=== PATIENT | female | born 1970 | race Caucasian/White ===

== ENCOUNTER 2022-03-15 14:20 | Inpatient (IN) ==
[2022-03-15] MEDS ORDERED: Naloxone 0.4 MG/ML INJ IVP PRN (17:46)
[2022-03-15] MEDS: 0.9 % Sodium Chloride 1,000 ML IVC SCH (18:41)
[2022-03-15] MEDS ORDERED: Ondansetron ODT 4 MG TAB.RAPDIS SL PRN (19:25)
[2022-03-15] MEDS: Azithromycin 500 MG in 0.9 % Sodium Chloride 250 ML IVPB SCH (21:17)
[2022-03-15 21:18] LABS: Hemoglobin 10.2 g/dL (11.5-15.4); Mean Corpuscular HGB Conc 31.9 g/dL (31.6-35.5); Mean Corpuscular Hemoglobin 27.1 pg (28.0-33.3); Mean Corpuscular Volume 85.1 fL (83.0-100.0); Mean Platelet Volume 9.3 fL (9.4-12.4); Platelet Count 229 K/mcL (140-400); Red Blood Count 3.76 M/mcL (3.82-4.97); Red Cell Distribution Width 13.4 % (11.5-14.5); White Blood Count 8.3 K/mcL (4.3-11.1)
[2022-03-15 21:27] LABS: Heparin anti-factor XA UFH 0.52 IU/mL (0.30-0.70)
[2022-03-16] MEDS: Heparin 25,000UNIT/250ML 1/2NS 25,000 UNIT/250 ML IV.SOLN IVC SCH (01:57)
[2022-03-16] MEDS ORDERED: *HR* Heparin 5,000 UNIT/ML VIAL IVP ONE (02:00)
[2022-03-16] MEDS ORDERED: *HR* Heparin 5,000 UNIT/ML VIAL IVP PRN (02:00)
[2022-03-16 02:42] LABS: Basophils % 0.4 %; Eosinophils # 0.1 K/mcL (0.0-0.6); Eosinophils % 1.3 %; Hematocrit 32.9 % (35.3-44.9); Hemoglobin 10.2 g/dL (11.5-15.4); Immature Granulocytes % 0.3 % (0-4); Lymphocytes # 3.5 K/mcL (0.6-4.6); Lymphocytes % 44.9 %; Mean Corpuscular Hemoglobin 26.8 pg (28.0-33.3); Mean Corpuscular Volume 86.4 fL (83.0-100.0); Mean Platelet Volume 9.3 fL (9.4-12.4); Monocytes # 0.5 K/mcL (0.0-1.3); Monocytes % 5.7 %; Neutrophils # 3.7 K/mcL (1.6-8.9); Platelet Count 224 K/mcL (140-400); Red Blood Count 3.81 M/mcL (3.82-4.97); Red Cell Distribution Width 13.5 % (11.5-14.5); Segmented Neutrophils % 47.4 %; White Blood Count 7.8 K/mcL (4.3-11.1)
[2022-03-16 02:56] LABS: Calcium 7.9 mg/dL (8.6-10.3); Chol/HDL Ratio 2.7 (0-4.9); Magnesium 1.7 mg/dL (1.6-2.6); Phosphorous 3.2 mg/dL (2.7-4.5); Potassium 3.9 mEq/L (3.5-5.1)
[2022-03-16 03:39] LABS: Estimated Average Glucose 140 mg/dl; Hemoglobin A1C 6.5 %
[2022-03-16] MEDS: 0.9 % Sodium Chloride 1,000 ML IVC SCH ×2 (08:13→08:32)
[2022-03-16] MEDS: cefTRIAXone 2,000 MG in 0.9 % Sodium Chloride 20 ML IVP SCH (08:30)
[2022-03-16] MEDS: Aspirin 81 MG TAB.CHEW PO SCH (08:32)
[2022-03-16] MEDS: lisinopriL 5 MG TABLET PO SCH (08:32)
[2022-03-16] MEDS: Nicotine 7 MG PATCH.TD24 TD SCH (08:32)
[2022-03-16] MEDS ORDERED: Nitroglycerin 0.4 MG TAB.SUBL SL PRN (09:37)
[2022-03-16] MEDS ORDERED: *HR* Labetalol 20 MG/4 ML SYRINGE IVP ONE ×2 (10:18→16:28)
[2022-03-16] MEDS ORDERED: LEVETIRACETAM 750 MG PO SCH (10:30)
[2022-03-16] MEDS ORDERED: Morphine Sulfate 2 MG/ML SYRINGE IVP PRN (10:54)
[2022-03-16] MEDS ORDERED: cloNIDine HCL 0.1 MG TABLET PO ONE (16:29)
[2022-03-16] MEDS: Azithromycin 500 MG in 0.9 % Sodium Chloride 250 ML IVPB SCH (21:23)
[2022-03-16] MEDS: *HR* Heparin 5,000 UNIT/ML VIAL IVP PRN (21:27)
[2022-03-16] MEDS: carvediloL 6.25 MG TABLET PO SCH (21:32)
[2022-03-16] MEDS: cloNIDine HCL 0.1 MG TABLET PO SCH (21:32)
[2022-03-17] MEDS: Heparin 25,000UNIT/250ML 1/2NS 25,000 UNIT/250 ML IV.SOLN IVC SCH ×2 (02:34→23:40)
[2022-03-17 04:02] LABS: Hematocrit 27.8 % (35.3-44.9); Hemoglobin 8.7 g/dL (11.5-15.4); Mean Corpuscular HGB Conc 31.3 g/dL (31.6-35.5); Mean Corpuscular Hemoglobin 27.4 pg (28.0-33.3); Mean Corpuscular Volume 87.4 fL (83.0-100.0); Mean Platelet Volume 9.9 fL (9.4-12.4); Platelet Count 158 K/mcL (140-400); Red Blood Count 3.18 M/mcL (3.82-4.97); Red Cell Distribution Width 13.4 % (11.5-14.5); White Blood Count 5.5 K/mcL (4.3-11.1)
[2022-03-17 04:36] LABS: Albumin 2.9 g/dL (3.5-5.7); Albumin/Globulin Ratio 1.2 (1.1-2.2); Bilirubin,Total 0.5 mg/dL (0.3-1.0); Calcium 8.2 mg/dL (8.6-10.3); Globulin 2.4 g/dL (2.4-3.5); Magnesium 1.7 mg/dL (1.6-2.6); Total Protein 5.3 g/dL (6.4-8.9); Troponin I 0.17 ng/mL (< 0.04)
[2022-03-17] MEDS: Baclofen 10 MG TABLET PO SCH (09:27)
[2022-03-17] MEDS: lisinopriL 5 MG TABLET PO SCH (09:27)
[2022-03-17] MEDS: Venlafaxine XR (24 HR) 150 MG CAP.ER.24H PO SCH (09:27)
[2022-03-17] MEDS: cloNIDine HCL 0.1 MG TABLET PO SCH ×2 (09:27→20:29)
[2022-03-17] MEDS: Aspirin 81 MG TAB.CHEW PO SCH (09:27)
[2022-03-17] MEDS: carvediloL 6.25 MG TABLET PO SCH ×2 (09:27→20:29)
[2022-03-17] MEDS: Nicotine 7 MG PATCH.TD24 TD SCH (09:28)
[2022-03-17] MEDS: cefTRIAXone 2,000 MG in 0.9 % Sodium Chloride 20 ML IVP SCH (09:32)
[2022-03-17 12:17] LABS: Hematocrit 28.3 % (35.3-44.9); Hemoglobin 8.8 g/dL (11.5-15.4)
[2022-03-17] MEDS: levETIRAcetam 250 MG TABLET PO SCH (17:06)
[2022-03-17] MEDS: Azithromycin 500 MG in 0.9 % Sodium Chloride 250 ML IVPB SCH (20:27)
[2022-03-18 03:58] LABS: Basophils % 0.6 %; Eosinophils # 0.1 K/mcL (0.0-0.6); Eosinophils % 2.2 %; Hematocrit 26.7 % (35.3-44.9); Hemoglobin 8.5 g/dL (11.5-15.4); Immature Granulocytes % 0.2 % (0-4); Lymphocytes # 2.1 K/mcL (0.6-4.6); Lymphocytes % 42.9 %; Mean Corpuscular HGB Conc 31.8 g/dL (31.6-35.5); Mean Corpuscular Hemoglobin 27.3 pg (28.0-33.3); Mean Corpuscular Volume 85.9 fL (83.0-100.0); Mean Platelet Volume 10.2 fL (9.4-12.4); Monocytes # 0.3 K/mcL (0.0-1.3); Monocytes % 6.5 %; Neutrophils # 2.3 K/mcL (1.6-8.9); Platelet Count 134 K/mcL (140-400); Red Blood Count 3.11 M/mcL (3.82-4.97); Segmented Neutrophils % 47.6 %; White Blood Count 4.9 K/mcL (4.3-11.1)
[2022-03-18 04:14] LABS: BUN/Creatinine Ratio 15 (6-26); Blood Urea Nitrogen 12 mg/dL (6-20); Calcium 8.2 mg/dL (8.6-10.3); Carbon Dioxide 29 mEq/L (23-29); Chloride 106 mEq/L (98-107); Glucose 114 mg/dL (70-105); Osmolality,Calculated 289 (280-300); Potassium 3.7 mEq/L (3.5-5.1); Sodium 139 mEq/L (136-145)
[2022-03-18] MEDS: levETIRAcetam 250 MG TABLET PO SCH ×2 (05:42→17:06)
[2022-03-18] MEDS: Aspirin 81 MG TAB.CHEW PO SCH (09:32)
[2022-03-18] MEDS: cloNIDine HCL 0.1 MG TABLET PO SCH ×2 (09:32→20:46)
[2022-03-18] MEDS: Venlafaxine XR (24 HR) 150 MG CAP.ER.24H PO SCH (09:32)
[2022-03-18] MEDS: carvediloL 6.25 MG TABLET PO SCH ×2 (09:33→20:47)
[2022-03-18] MEDS: Nicotine 7 MG PATCH.TD24 TD SCH ×2 (09:33→20:45)
[2022-03-18] MEDS: cefTRIAXone 1,000 MG in 0.9 % Sodium Chloride 10 ML IVP SCH (09:33)
[2022-03-18] MEDS: lisinopriL 5 MG TABLET PO SCH (09:33)
[2022-03-18] MEDS: Baclofen 10 MG TABLET PO SCH (09:33)
[2022-03-18] MEDS: *HR* Heparin 5,000 UNIT/ML VIAL IVP PRN (11:13)
[2022-03-18] MEDS ORDERED: SODIUM CHLORIDE/NAHCO3/KCL/PEG 4,000 ML SOLN.RECON PO ONE (17:00)
[2022-03-18] MEDS: *HR* Heparin 5,000 UNIT/ML VIAL SQ SCH (17:07)
[2022-03-18] MEDS: Melatonin 3 MG TABLET PO PRN (20:45)
[2022-03-18] MEDS: Azithromycin 250 MG TABLET PO SCH (20:45)
[2022-03-19] MEDS: levETIRAcetam 250 MG TABLET PO SCH ×2 (05:50→17:32)
[2022-03-19] MEDS: *HR* Heparin 5,000 UNIT/ML VIAL SQ SCH ×3 (05:51→19:55)
[2022-03-19 06:50] LABS: Basophils % 0.2 %; Eosinophils # 0.2 K/mcL (0.0-0.6); Eosinophils % 3.3 %; Hemoglobin 9.1 g/dL (11.5-15.4); Immature Granulocytes % 0.2 % (0-4); Lymphocytes # 1.6 K/mcL (0.6-4.6); Lymphocytes % 34.7 %; Mean Corpuscular HGB Conc 31.4 g/dL (31.6-35.5); Mean Corpuscular Hemoglobin 26.8 pg (28.0-33.3); Mean Corpuscular Volume 85.3 fL (83.0-100.0); Mean Platelet Volume 10.3 fL (9.4-12.4); Monocytes # 0.4 K/mcL (0.0-1.3); Monocytes % 8.8 %; Neutrophils # 2.4 K/mcL (1.6-8.9); Platelet Count 158 K/mcL (140-400); Red Cell Distribution Width 13.1 % (11.5-14.5); Segmented Neutrophils % 52.8 %; White Blood Count 4.5 K/mcL (4.3-11.1)
[2022-03-19 07:07] LABS: Calcium 8.8 mg/dL (8.6-10.3)
[2022-03-19] MEDS: cloNIDine HCL 0.1 MG TABLET PO SCH ×2 (08:16→19:51)
[2022-03-19] MEDS: carvediloL 6.25 MG TABLET PO SCH ×2 (08:17→19:50)
[2022-03-19] MEDS: Aspirin 81 MG TAB.CHEW PO SCH (08:17)
[2022-03-19] MEDS: lisinopriL 5 MG TABLET PO SCH (08:17)
[2022-03-19] MEDS: Venlafaxine XR (24 HR) 150 MG CAP.ER.24H PO SCH (08:17)
[2022-03-19] MEDS: Baclofen 10 MG TABLET PO SCH (08:17)
[2022-03-19] MEDS: Nicotine 7 MG PATCH.TD24 TD SCH (08:19)
[2022-03-19] MEDS: cefTRIAXone 1,000 MG in 0.9 % Sodium Chloride 10 ML IVP SCH (08:21)
[2022-03-19] MEDS: Azithromycin 250 MG TABLET PO SCH (19:50)
[2022-03-19] MEDS: Melatonin 3 MG TABLET PO PRN (19:52)
[2022-03-19] MEDS ORDERED: Acetaminophen 325 MG TABLET PO ONE (22:14)
[2022-03-19 23:56] LABS: Adenovirus Not Detected (Not Detect); Bordetella Pertussis Not Detected (Not Detect); Chlamydophila pneumoniae Not Detected (Not Detect); Coronavirus 229E Not Detected (Not Detect); Coronavirus HKU1 Not Detected (Not Detect); Coronavirus NL63 Not Detected (Not Detect); Coronavirus OC43 Not Detected (Not Detect); Human Metapneumovirus Not Detected (Not Detect); Human Rhinovirus/Enterovirus Not Detected (Not Detect); Influenza A Subtype 2009 H1 Not Detected (Not Detect); Influenza B Not Detected (Not Detect); Mycoplasma pneumoniae Not Detected (Not Detect); Parainfluenza Virus 1 Not Detected (Not Detect); Parainfluenza Virus 2 Not Detected (Not Detect); Parainfluenza Virus 3 Not Detected (Not Detect); Parainfluenza Virus 4 Not Detected (Not Detect); Respiratory Syncytial Virus Not Detected (Not Detect); SARS-CoV-2 Not Detected (Not Detect)
[2022-03-20 03:13] LABS: Hematocrit 28.2 % (35.3-44.9); Hemoglobin 9.1 g/dL (11.5-15.4); Mean Corpuscular HGB Conc 32.3 g/dL (31.6-35.5); Mean Corpuscular Hemoglobin 27.1 pg (28.0-33.3); Mean Corpuscular Volume 83.9 fL (83.0-100.0); Mean Platelet Volume 10.6 fL (9.4-12.4); Platelet Count 181 K/mcL (140-400); Red Blood Count 3.36 M/mcL (3.82-4.97); Red Cell Distribution Width 13.2 % (11.5-14.5); White Blood Count 4.6 K/mcL (4.3-11.1)
[2022-03-20 03:34] LABS: Calcium 8.6 mg/dL (8.6-10.3); Potassium 3.7 mEq/L (3.5-5.1)
[2022-03-20] MEDS: levETIRAcetam 250 MG TABLET PO SCH ×2 (05:58→17:48)
[2022-03-20] MEDS: *HR* Heparin 5,000 UNIT/ML VIAL SQ SCH ×2 (05:59→15:58)
[2022-03-20] MEDS: Aspirin 81 MG TAB.CHEW PO SCH (08:16)
[2022-03-20] MEDS: Venlafaxine XR (24 HR) 150 MG CAP.ER.24H PO SCH (08:16)
[2022-03-20] MEDS: lisinopriL 5 MG TABLET PO SCH (08:17)
[2022-03-20] MEDS: cefTRIAXone 1,000 MG in 0.9 % Sodium Chloride 10 ML IVP SCH (08:17)
[2022-03-20] MEDS: carvediloL 6.25 MG TABLET PO SCH (08:17)
[2022-03-20] MEDS: Nicotine 7 MG PATCH.TD24 TD SCH (08:17)
[2022-03-20] MEDS: cloNIDine HCL 0.1 MG TABLET PO SCH (08:17)
[2022-03-20] MEDS: Baclofen 10 MG TABLET PO SCH (08:17)
[2022-03-20 11:08] LABS: % Iron Saturation 8 % (15-50); Iron 30 mcg/dL (50-170); Transferrin 253 mg/dL (203-362)
[2022-03-20] MEDS ORDERED: *HR* FentaNYL (PF) 100 MCG/2 ML VIAL ONE (13:17)
[2022-03-20] MEDS ORDERED: *HR* Midazolam HCl 2 MG/2 ML VIAL ONE (13:17)
[2022-03-20] MEDS ORDERED: Iopamidol - 370 200 ML INFUS..BTL ONE (13:18)
[2022-03-20] MEDS ORDERED: Heparin 1,000 UNITS/500 mL 500 ML ONE (13:18)
[2022-03-20] MEDS ORDERED: *HR* Heparin 10,000 UNIT/10 ML VIAL ONE (13:18)
[2022-03-20] MEDS ORDERED: 0.9 % Sodium Chloride 2,000 ML ONE (13:18)
[2022-03-20] MEDS ORDERED: Nitroglycerin 1,000 MCG/5 ML VIAL IV ONE (13:18)
[2022-03-20 15:35] LABS: Folate > 22.3 ng/mL (3.0-16.0); Vitamin B12 236 pg/mL (250-1100)
[2022-03-20 17:27] VITALS: O2SAT 97
[2022-03-20 18:17] VITALS: BP 154/87; PULSE 79; TEMP 98
== END 2022-03-20 18:46 | disposition home or self-care (01) | DRG 100 ==
LOC: 2NENU → SUATTDRO 16:58
PROVIDERS: ADMIT Internal Medicine; ATTEND Internal Medicine